=== PATIENT | female | born 2000 | race Caucasian/White ===

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

== ENCOUNTER → 2023-05-13 | Outpatient (CLI) | payer OTHER ==
--- NOTE | 2023-05-14 09:32 | US ---
EXAMINATION TYPE: US kidneys/renal and bladder DATE OF EXAM: 05/13/2023 COMPARISON: NONE CLINICAL INDICATION: Female, 22 years old with history of N28.89 OTHER SPECIFIED DISORDERS OF KIDNEY AND URE; EXAM MEASUREMENTS: Right Kidney: 10.3 x 4.4 x 4.6 cm Left Kidney: 10.6 x 4.7 x 4.9 cm Right Kidney: wnl Left Kidney: wnl Bladder: Anechoic; not fully distended Bilateral Jets seen: no Normal Post Void Residual: yes There is no evidence for hydronephrosis at this point in time. No nephrolithiasis is seen. No froylan s are identified. The urinary bladder is anechoic. Bilateral ureteral jets are seen. IMPRESSION: No significant abnormality appreciated.
== END | disposition home or self-care (01) ==
LOC: RADUSWWP 16:02
PROVIDERS: ATTEND Family Medicine
DX: N28.89 Other specified disorders of kidney and ureter (principal)
CPT/HCPCS: 76770

== ENCOUNTER 2024-03-22 03:59 | Emergency (ER) | payer OTHER ==
[2024-03-22 04:03] VITALS: TEMP 98.1
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
[2024-03-22] MEDS: predniSONE 20 MG TAB PO STA (04:30)
[2024-03-22] MEDS: NAPROXEN 250 MG TAB PO STA (04:30)
[2024-03-22 07:00] VITALS: BP 133/81; PULSE 82; RESP 18
== END 2024-03-22 07:00 | disposition home or self-care (01) ==
LOC: EC 03:59
DX: G89.29 Other chronic pain (principal); M54.50 Low back pain, unspecified
CPT/HCPCS: 99283; J7512